=== PATIENT | male | born 1970 | race Caucasian/White ===

== ENCOUNTER 2017-11-24 11:49 | Emergency (ER) | payer SELFPAY ==
[2017-11-24] MEDS ORDERED: Lidocaine 1% with EPINEPHrine 1:100,000 20 ML MDV INJECT ONE (12:27)
[2017-11-24] MEDS ORDERED: Diphtheria,Pertussis(Acell),Tetanus Vaccine 0.5 ML SDV inactive IM ONE (12:44)
--- NOTE | 2017-11-24 18:25 | ER ---
DATE OF SERVICE: 11/24/2017 HPI: A 47-year-old male here after sustaining a small laceration to the left hand transversely just proximal to the knuckle at the base of the index finger. He states he was cutting some pork for a barbecue when he cut himself. The patient states that his finger still works. There is no loss of function. He did hold pressure to the area to stop the bleeding. He is otherwise healthy. OBJECTIVE: GENERAL APPEARANCE: The patient is awake and alert. No obvious distress. VITAL SIGNS: Reviewed as listed. Examining the left hand reveals a transverse laceration just proximal to the knuckle at the base of the index finger. It is about 2 cm in length. It is to the epidermis only. The patient has full flexion and extension capability today. DIAGNOSIS: Laceration to left index finger. TREATMENT PLAN: The site was cleansed with a Betadine/sterile water mixture, after which I injected 1% lidocaine with epi locally for anesthesia. After which a sterile field was established, and I closed the wound with sutures. It required 5 sutures of 5-0 Ethilon. The patient tolerated the procedure well. Post care instruction, antibiotic ointment, and a Band-Aid was applied by nursing staff. He is to keep the site covered for 2 to 3 days. He is to monitor for infection. [id number] medicines should be used as needed for pain control. The patient is due for tetanus, but refused it today and the sutures should come out in about 10 days. ALISTAIR/JANICE /[id number] DENNY
== END 2017-11-24 13:13 | disposition home or self-care (01) ==
LOC: LB.ED 11:49
DX: S61.211A Laceration without foreign body of left index finger without damage to nail, initial encounter (principal); Z23 Encounter for immunization; W26.9XXA Contact with unspecified sharp object(s), initial encounter
CPT/HCPCS: 12001; 90471; 90715; 99282-25